=== PATIENT | female | born 1960 | race Caucasian/White ===

== ENCOUNTER 2021-11-18 08:08 | Outpatient (CLI) | payer BC | END 2021-11-18 08:09 | disposition home or self-care (01) | LOC: CSHWCC 08:08 | PROVIDERS: ATTEND Preventive Medicine Undersea and Hyperbaric Medicine | DX: T81.89XD Other complications of procedures, not elsewhere classified, subsequent encounter (principal) | CPT/HCPCS: 36416; 97605; 99202; G0463 ==

== ENCOUNTER 2021-11-22 14:27 | Outpatient (CLI) | payer BC | END 2021-11-22 14:28 | disposition home or self-care (01) | LOC: CSHWCC 14:27 | PROVIDERS: ATTEND Preventive Medicine Undersea and Hyperbaric Medicine | DX: T81.89XD Other complications of procedures, not elsewhere classified, subsequent encounter (principal) | CPT/HCPCS: 11042; 97605 ==

== ENCOUNTER 2021-11-24 13:19 | Outpatient (CLI) | payer BC | END 2021-11-24 13:20 | disposition home or self-care (01) | LOC: CSHWCC 13:19 | PROVIDERS: ATTEND Preventive Medicine Undersea and Hyperbaric Medicine | DX: T81.89XD Other complications of procedures, not elsewhere classified, subsequent encounter (principal) | CPT/HCPCS: 97605 ==

== ENCOUNTER 2021-11-29 08:41 | Outpatient (CLI) | payer BC | END 2021-11-29 08:42 | disposition home or self-care (01) | LOC: CSHWCC 08:41 | PROVIDERS: ATTEND Preventive Medicine Undersea and Hyperbaric Medicine | DX: T81.89XD Other complications of procedures, not elsewhere classified, subsequent encounter (principal) | CPT/HCPCS: 97605 ==

== ENCOUNTER 2021-12-02 08:33 | Outpatient (CLI) | payer BC | END 2021-12-02 08:34 | disposition home or self-care (01) | LOC: CSHWCC 08:33 | PROVIDERS: ATTEND Nurse Practitioner Family | DX: T81.89XD Other complications of procedures, not elsewhere classified, subsequent encounter (principal) | CPT/HCPCS: 97605 ==

== ENCOUNTER 2021-12-05 11:17 | Outpatient (CLI) | payer BC | END 2021-12-05 11:18 | disposition home or self-care (01) | LOC: CSHWCC 11:17 | PROVIDERS: ATTEND Preventive Medicine Undersea and Hyperbaric Medicine | DX: T81.89XD Other complications of procedures, not elsewhere classified, subsequent encounter (principal) | CPT/HCPCS: 97607 ==

== ENCOUNTER 2021-12-09 08:18 | Outpatient (CLI) | payer BC | END 2021-12-09 08:19 | disposition home or self-care (01) | LOC: CSHWCC 08:18 | PROVIDERS: ATTEND Nurse Practitioner Family | DX: T81.89XD Other complications of procedures, not elsewhere classified, subsequent encounter (principal) | CPT/HCPCS: 97605; 99212; G0463 ==

== ENCOUNTER 2021-12-16 09:03 | Outpatient (CLI) | payer BC | END 2021-12-16 09:04 | disposition home or self-care (01) | LOC: CSHWCC 09:03 | PROVIDERS: ATTEND Nurse Practitioner Family | DX: T81.89XD Other complications of procedures, not elsewhere classified, subsequent encounter (principal) ==

== ENCOUNTER 2021-12-20 08:28 | Outpatient (CLI) | payer BC | END 2021-12-20 08:29 | disposition home or self-care (01) | LOC: CSHWCC 08:28 | PROVIDERS: ATTEND Nurse Practitioner Family | DX: T81.89XD Other complications of procedures, not elsewhere classified, subsequent encounter (principal) | CPT/HCPCS: 97605 ==

== ENCOUNTER 2021-12-23 08:06 | Outpatient (CLI) | payer BC | END 2021-12-23 08:07 | disposition home or self-care (01) | LOC: CSHWCC 08:06 | PROVIDERS: ATTEND Nurse Practitioner Family | DX: T81.89XD Other complications of procedures, not elsewhere classified, subsequent encounter (principal) | CPT/HCPCS: 97605 ==

== ENCOUNTER 2021-12-27 13:52 | Outpatient (CLI) | payer BC | END 2021-12-27 13:53 | disposition home or self-care (01) | LOC: CSHWCC 13:52 | PROVIDERS: ATTEND Nurse Practitioner Family | DX: T81.89XD Other complications of procedures, not elsewhere classified, subsequent encounter (principal) ==

== ENCOUNTER 2021-12-30 08:09 | Outpatient (CLI) | payer BC | END 2021-12-30 08:10 | disposition home or self-care (01) | LOC: CSHWCC 08:09 | PROVIDERS: ATTEND Nurse Practitioner Family | DX: T81.89XD Other complications of procedures, not elsewhere classified, subsequent encounter (principal) | CPT/HCPCS: 97605 ==

== ENCOUNTER 2022-01-02 10:34 | Outpatient (CLI) | payer BC | END 2022-01-02 10:35 | disposition home or self-care (01) | LOC: CSHWCC 10:34 | PROVIDERS: ATTEND Nurse Practitioner Family | DX: T81.89XD Other complications of procedures, not elsewhere classified, subsequent encounter (principal) | CPT/HCPCS: 97605 ==

== ENCOUNTER 2022-01-04 08:34 | Outpatient (CLI) | payer BC | END 2022-01-04 08:35 | disposition home or self-care (01) | LOC: CSHWCC 08:34 | PROVIDERS: ATTEND Nurse Practitioner Family | DX: T81.89XD Other complications of procedures, not elsewhere classified, subsequent encounter (principal) ==

== ENCOUNTER 2022-01-09 10:30 | Outpatient (CLI) | payer BC | END 2022-01-09 10:31 | disposition home or self-care (01) | LOC: CSHWCC 10:30 | PROVIDERS: ATTEND Nurse Practitioner Family | DX: T81.89XD Other complications of procedures, not elsewhere classified, subsequent encounter (principal) | CPT/HCPCS: 97605 ==

== ENCOUNTER 2022-01-12 14:41 | Outpatient (CLI) | payer BC | END 2022-01-12 14:42 | disposition home or self-care (01) | LOC: CSHWCC 14:41 | PROVIDERS: ATTEND Nurse Practitioner Family | DX: T81.89XD Other complications of procedures, not elsewhere classified, subsequent encounter (principal) ==

== ENCOUNTER 2022-01-16 10:14 | Outpatient (CLI) | payer BC | END 2022-01-16 10:15 | disposition home or self-care (01) | LOC: CSHWCC 10:14 | PROVIDERS: ATTEND Nurse Practitioner Family | DX: T81.89XD Other complications of procedures, not elsewhere classified, subsequent encounter (principal) | CPT/HCPCS: 99212; G0463 ==